=== PATIENT | female | born 1955 | race Hispanic/Latino ===

== ENCOUNTER 2020-10-12 08:41 | Emergency (ER) | payer OTHER, MEDICARE ==
[~2020-10-12] VITALS: Ht 154.9 cm; Wt 69.9 kg
[2020-10-12 08:44] VITALS: BP 192/75
[2020-10-12 10:17] VITALS: BP 172/72
== END 2020-10-12 11:36 | disposition home or self-care (01) ==
LOC: EDH 08:41
DX: K13.79 Other lesions of oral mucosa (principal); K08.89 Other specified disorders of teeth and supporting structures; I12.0 Hypertensive chronic kidney disease with stage 5 chronic kidney disease or end stage renal disease; E10.22 Type 1 diabetes mellitus with diabetic chronic kidney disease; N18.6 End stage renal disease; E78.00 Pure hypercholesterolemia, unspecified; E07.9 Disorder of thyroid, unspecified; Z99.2 Dependence on renal dialysis
CPT/HCPCS: 99281

== ENCOUNTER → 2021-06-27 | Outpatient (CLI) | payer OTHER, MEDICARE | LOC: RAH 08:37 | PROVIDERS: ATTEND Family Medicine | DX: Z12.31 Encounter for screening mammogram for malignant neoplasm of breast (principal) | CPT/HCPCS: 77067 ==

== ENCOUNTER → 2023-09-13 | Outpatient (CLI) | payer OTHER, MEDICARE | END | disposition home or self-care (01) | LOC: RAH 08:28 | PROVIDERS: ATTEND Family Medicine | DX: Z12.31 Encounter for screening mammogram for malignant neoplasm of breast (principal) | CPT/HCPCS: 77067 ==